=== PATIENT | female | born 1965 | race Caucasian/White ===

== ENCOUNTER → 2016-11-29 | Outpatient (CLI) | payer BC ==
[~2016-11-29] MED LIST: ASPI81TA28 PO; ATOR-24 PO; CLR/5 PO; GLIM4TAB2 PO; LISI1TAB3 PO; PRLSR20 PO; SITA100T3 PO; [UNRECOGNIZED DRUG - OTHER] PO
[2016-11-29 12:45] LABS: HEMATOCRIT 41.3 % (37-47); MEAN CELL VOLUME 86.8 fL (80-100); MEAN CORPUSCULAR HEMOGLOBIN 28.4 pg (25-34); MEAN CORPUSCULAR HGB CONC 32.7 g/dl (32-36); MEAN PLATELET VOLUME 10.9 fL (7.4-10.4); PLATELET COUNT 284 K/uL (130-400); RED BLOOD COUNT 4.76 M/uL (4.2-5.4); WHITE BLOOD COUNT 7.78 K/uL (4.8-10.8)
[2016-11-29 12:59] LABS: ALT/SGPT 21 U/L (12-78); AST/SGOT 13 U/L (15-37); BLOOD UREA NITROGEN 14 mg/dl (7-18); BUN/CREATININE RATIO 19.4 (10-20); CALCIUM 8.6 mg/dl (8.5-10.1); CARBON DIOXIDE 27 mmol/L (21-32); CHLORIDE 105 mmol/L (98-107); CREATININE 0.71 mg/dl (0.60-1.20); GLUCOSE 125 mg/dl (70-99); POTASSIUM 4.2 mmol/L (3.5-5.1); SODIUM 140 mmol/L (136-145)
[2016-11-29 13:10] LABS: ALB/GLOB RATIO 0.9 (0.9-2); ALKALINE PHOSPHATASE 133 U/L (45-117); CHOLESTEROL 134 mg/dl (0-200); CHOLESTEROL/HDL RATIO 2.1; HDL CHOLESTEROL 63 mg/dl; LDL CHOLESTEROL CALCULATED 54 mg/dl; TRIGLYCERIDES 85 mg/dl (0-150); VERY LOW DENSITY LIPOPROT CALC 17 mg/dl
[2016-11-29 13:13] LABS: ESTIMATED AVERAGE GLUCOSE 163 mg/dl; HA1C FLAG Normal (Normal)
== END | disposition home or self-care (01) ==
LOC: C.LABBFT 07:45
PROVIDERS: ATTEND Internal Medicine
DX: E11.29 Type 2 diabetes mellitus with other diabetic kidney complication (principal)

== ENCOUNTER 2016-12-11 05:26 | Day surgery (SDC) | payer BC, OTHER ==
[2016-11-29 10:10] VITALS: BMI 54.0
--- NOTE | 2016-11-29 10:31 | PAT Medication Instructions ---
Service Date Nov 29, 2016. Current Home Medication List Aspirin (Aspirin Ec), 81 MG PO QPM Atorvastatin (Lipitor), 40 MG PO QAM Desloratadine (Clarinex), 5 MG PO QAM Glimepiride (Glimepiride), 1 TAB PO BID Lisinopril (Zestril), 30 MG PO QAM Omeprazole (Prilosec), 20 MG PO QAM Sitagliptin Phosphate (Januvia), 100 MG PO QAM [Headache Med-], 2 TAB PO PRN Medication Instructions For Your Scheduled Surgery - Hold the following medications the morning of surgery: Desloratadine (Clarinex), 5 MG PO QAM Glimepiride (Glimepiride), 1 TAB PO BID Lisinopril (Zestril), 30 MG PO QAM Sitagliptin Phosphate (Januvia), 100 MG PO QAM [Headache Med-], 2 TAB PO PRN - Take the following medications the morning of surgery with a sip of water OTHERWISE NOTHING TO EAT OR DRINK AFTER MIDNIGHT: Omeprazole (Prilosec), 20 MG PO QAM Atorvastatin (Lipitor), 40 MG PO QAM - Take the following medications as scheduled the night before surgery: Glimepiride (Glimepiride), 1 TAB PO BID Aspirin (Aspirin Ec), 81 MG PO QPM [Headache Med-], 2 TAB PO PRN If you have any questions please call us at [phone] or [phone] or [phone]
[~2016-12-11] VITALS: Ht 157.5 cm; Wt 134.5 kg
[2016-12-11 05:58] VITALS: BP 152/74; PULSE 76; TEMP 36.7; O2SAT 94; Ht 157.5 cm; Wt 134.5 kg
[2016-12-11] MEDS ORDERED: LACTATED RINGER'S 1000ML 1,000 ML IV SCH ×2 (06:00→08:17)
[2016-12-11] MEDS ORDERED: MIDAZOLAM HCL 1 MG/ML 2ML VIAL ONE (06:52)
[2016-12-11] MEDS ORDERED: FENTANYL CITRATE INJ 50 MCG/1 ML 2 ML VIAL ONE (06:52)
[2016-12-11] MEDS ORDERED: CITRIC ACID/SODIUM CITRATE 15 ML UDC ONE (07:12)
[2016-12-11] MEDS ORDERED: ONDANSETRON INJ 2 MG/ML 2 ML VIAL IV PRN (07:15)
[2016-12-11] MEDS ORDERED: MEPERIDINE HCL 25 MG/ML CARP IV PRN (07:15)
[2016-12-11] MEDS ORDERED: FENTANYL CITRATE INJ 50 MCG/1 ML 2 ML VIAL IV PRN (07:15)
[2016-12-11] MEDS ORDERED: ALBUTEROL 0.083% NEBU SOLN 3 ML VIAL INH PRN (07:15)
[2016-12-11] MEDS ORDERED: EpHEDrine SULFATE INJ 50 MG/ML AMP IV PRN (07:15)
[2016-12-11] MEDS ORDERED: MoRPHine SULFATE 10 MG/ML CARP/VIAL IV PRN (07:15)
[2016-12-11] MEDS ORDERED: ATROPINE SULFATE 0.1 MG/ML 5ML SYR IV PRN (07:15)
--- NOTE | 2016-12-11 07:22 | History and Physical ---
History & Physical Date Dec 11, 2016. Chief Complaint endometrial mass History of Present Illness The patient is a 51 year old female, PM who presented for her annual exam without complaints. Shortly thereafter had several days of light brown [id number]. Had endo b iopsy that showed proliferative endometrium. Was advised to take provera 10 mg x 10 days per month. Had ultrasound which showed a thickeened endometrium with concern for polyp. Additional History Hepatic Disease: Yes Endocrine Disorder: Yes Kidney Disease: No Hypertension: No Heart Disease: No Bleeding Tendencies: No Infectious Diseases: No LMP: PM Other: Patietn has hx of fatty liver, DM, GERD, hypercholesterolemia, obesity. PSx hx- -carpal tunnel repair, oral surgery, BTL. Family hx of breast cancer, DM, hyyperlipidemia, [place], hypertension, Allergies Coded Allergies: No Known Allergies (Verified , 12/11/16) Home Medications Scheduled Aspirin (Aspirin Ec), 81 MG PO QPM Atorvastatin (Lipitor), 40 MG PO QAM Desloratadine (Clarinex), 5 MG PO QAM Glimepiride (Glimepiride), 1 TAB PO BID Lisinopril (Zestril), 30 MG PO QAM Omeprazole (Prilosec), 20 MG PO QAM Sitagliptin Phosphate (Januvia), 100 MG PO QAM [Headache Med-], 2 TAB PO PRN Physical Examination Skin: warm/dry Neck: supple, no adenopathy Respiratory/Chest: lungs clear, normal breath sounds Cardiovascular: regular rate, rhythm Abdomen / GI: non tender (nd, soft) Genitourinary - Female: external genitalia normal, normal pelvic exam Plan of Treatment Plan D&C/HSC and removal of mass. The r/b/se of this was discussed with the patient including bleeding, transfusion, infection, damage to surrounding structures, need for further surgery, 1% chance of uterine rupture, also discussed heart attack, blood clot, stroke and . Consent reviewed and signed.
[2016-12-11] MEDS ORDERED: DEXAMETHASONE SOD INJ 4 MG/ML VIAL ONE (07:54)
[2016-12-11] MEDS ORDERED: SUCCINYLCHOLINE CHLORIDE 20 MG/ML 10 ML VIAL IV ONE (07:54)
[2016-12-11] MEDS ORDERED: ONDANSETRON INJ 2 MG/ML 2 ML VIAL ONE (07:54)
[2016-12-11] MEDS ORDERED: KETOROLAC TROMETHAMINE 30 MG/ML VIAL ONE (07:54)
[2016-12-11] MEDS ORDERED: LIDOCAINE HCL 2% 2 ML VIAL (20MG/ML) ONE (07:54)
[2016-12-11] MEDS ORDERED: METOCLOPRAMIDE HCL INJ 5 MG/ML 2 ML VIAL ONE (07:54)
[2016-12-11] MEDS ORDERED: PROPOFOL IV EMULSION 10 MG/ML 20 ML VIAL IV ONE (07:54)
--- NOTE | 2016-12-11 08:20 | Discharge Instructions ---
Discharge Instructions Date of Service Dec 11, 2016. Visit Reason for Visit: Post Menopausal Bleeding; Endometrial Mass Discharge Discharge Diagnosis / Problem: s/p D&C with removal of polyp Discharge Goals Goal(s): Specific goals Activity Recommendations Activity Limitations: per Instructions/Follow-up section Anesthesia . Post Anesthesia Instructions: If you have had General Anesthesia or IV Sedation: * Do not drive today. * Resume driving when surgeon permits. * Do not make important decisions or sign legal documents today. * Call surgeon for: 1. Temperature elevations greater than 101 degrees F. 2. Uncontrollable pain. 3. Excessive bleeding. 4. Persistent nausea and vomiting. 5. Medication intolerance (nausea, vomiting or rash). * For nausea and vomiting use only clear liquids such as: tea, soda, bouillon until nausea subsides, then gradually increase diet as tolerated. * If you have any concerns or questions, call your surgeon's office. If physician is unavailable and it is an emergency, call 911 or go to the nearest emergency room. . Instructions / Follow-Up Instructions / Follow-Up ACTIVITY RECOMMENDATIONS: * Avoid tampons, douching, hot tubs, pools, and intercourse until bleeding has stopped. * May shower as usual. * No strenuous activity for 24-48 hours. After 24-48 hours, you may do anything you feel like doing (driving and sports are okay). SPECIAL CARE INSTRUCTIONS: Special Diet: * Mild nausea may occur in the immediate post-operative period. * Take clear liquids such as tea, cola or bouillon until all nausea has subsided; you may then resume your normal diet. Special Care: * Light bleeding and vaginal spotting can last from a few days to 3-4 weeks. Call your doctor if bleeding becomes heavier than the heaviest part of your period. * Check your temperature twice a day for one week. If it goes above 100.4 degrees Fahrenheit (38.0 Celsius), notify your doctor. * Call your doctor's office for an appointment for 2 weeks after your surgery. FOLLOW-UP VISIT: Call your doctor's office for an appointment for 2 weeks after your surgery. Diet Recommendations Recommended Home Diet: no limitations Procedures Procedures Performed: Hysteroscopy, dilitation and currettage. Pending Studies Studies pending at discharge: no Medical Emergencies . Who to Call and When: Medical Emergencies: If at any time you feel your situation is an emergency, please call 911 immediately. . Non-Emergent Contact Non-Emergency issues call your: Income Tax Expert . . "Provider Documentation" section prepared by Netta Figueroa.
--- NOTE | 2016-12-11 08:20 | [facility] Post Operative Brief Note ---
Immediate Operative Summary Operative Date Dec 11, 2016. Pre-Operative Diagnosis Post menopausal bleeding, endometrial mass. Post-Operative Diagnosis Same as preop. Procedure(s) Performed Hysteroscopy, dilitation and currettage. Surgeon Dr. Figueroa Computer Technical Support Specialist Surgeon(s) None Estimated Blood Loss 5 ml Findings small polyp noted in the fundus of the uterus, atrophic appearing endometrium Specimens A: Endometrial polyp B: Endometrial currettings. Drains none Anesthesia gett Complication(s) None Disposition Recovery Room / PACU
[2016-12-11] MEDS ORDERED: MoRPHine SULFATE 4 MG/ML 1 ML CARP\\VIAL IV PRN (08:30)
[2016-12-11] MEDS ORDERED: OXYCODONE/ACETAMINOPHEN 5-325 TAB PO PRN ×2 (08:30)
[2016-12-11] MEDS ORDERED: ACETAMINOPHEN 325 MG TAB PO PRN (08:30)
[2016-12-11] MEDS ORDERED: ACETAMINOPHEN 650 MG SUPP PR PRN (08:30)
[2016-12-11] MEDS ORDERED: IBUPROFEN 200 MG TAB PO PRN (08:30)
[2016-12-11] MEDS ORDERED: MoRPHine SULFATE 2 MG/ML CARP IV PRN ×2 (08:30)
--- NOTE | 2016-12-11 08:50 | Anesthesiology Progress Note ---
Anesthesia Post Op Note Date & Time Dec 11, 2016 at 08:50 Vital Signs Pain Intensity: 2 Vital Signs Past 12 Hours Date Time Temp Pulse Resp B/P Pulse Ox O2 Delivery O2 Flow Rate FiO2 12/11/16 08:40 79 20 141/77 98 Room Air 12/11/16 08:30 85 20 138/73 98 Room Air 12/11/16 08:20 36.6 86 20 134/72 98 Mask 10 12/11/16 08:12 36.6 94 20 160/82 97 Mask 10 12/11/16 05:58 36.7 76 18 152/74 94 Room Air Notes Mental Status: alert / awake / arousable, participated in evaluation Pt Amnestic to Procedure: Yes Nausea / Vomiting: adequately controlled Pain: adequately controlled Airway Patency, RR, SpO2: stable & adequate BP & HR: stable & adequate Hydration State: stable & adequate Anesthetic Complications: no major complications apparent
[2016-12-11 09:25] VITALS: BP 150/73; PULSE 76; TEMP 36.6; O2SAT 93
[2016-12-11 09:55] VITALS: BP 135/80; PULSE 74; O2SAT 95
[2016-12-11 10:25] VITALS: PULSE 75; O2SAT 95
--- NOTE | 2016-12-11 14:00 | OPERATIVE REPORT ---
DATE OF OPERATION: 12/11/2016 PREOPERATIVE DIAGNOSES: 1. Postmenopausal bleeding. 2. Endometrial mass. POSTOPERATIVE DIAGNOSES: Same. PROCEDURE: D\T\C, hysteroscopy with MyoSure removal of the polyp. SURGEON: Netta Figueroa MD ANESTHESIA: General per endotracheal tube. ESTIMATED BLOOD LOSS: 5 mL. INTRAVENOUS FLUIDS: 600 mL. HYSTEROSCOPIC DEFICIT: Zero. INDICATIONS FOR PROCEDURE: Milena is a 51-year-old postmenopausal morbidly obese female who was found to have an episode of postmenopausal bleeding. She had an endometrial biopsy in the office showing proliferative endometrium and had been on monthly MPA. On SI assay, an endometrial mass was noted. FINDINGS: Uterus sounded to a 7 cm. The endometrium appeared thin, but there was an endometrial polyp noted at its fundus. Both tubal ostia were visualized. COMPLICATIONS: None. DRAINS: None. DISPOSITION: To recovery room in stable condition. DESCRIPTION OF PROCEDURE: The patient was taken the operating room where she was identified verbally and by bracelet. She was placed in dorsal supine position where general anesthesia was induced without difficulty. She was then placed in the dorsal lithotomy position in [facility] stirrups and prepped and draped in normal sterile fashion. Time-out was held identifying correct patient, procedure and positioning. The bladder was drained of urine and exam under anesthesia was performed revealing a mobile uterus, but exam was limited by body habitus. A Lockhart retractor was placed in the posterior vagina. The anterior lip of the cervix was grasped with single tooth tenaculum. The uterus was sounded to 7 cm, dilated to a #25 Hegar dilator. The MyoSure hysteroscope was introduced with the above noted findings. The MyoSure Lite was placed through the MyoSure scope and the endometrial polyp was removed. Then the hysteroscope was removed, the curettage was performed and the procedure was thus terminated. All sponge, lap and needle counts were correct x2. The patient tolerated the procedure well, was taken to the recovery room in stable condition. I attest to the content of the Intraoperative Record and any orders documented therein. Any exceptio ns are noted below.
== END 2016-12-11 10:37 | disposition home or self-care (01) ==
LOC: C.ACU 05:26
PROVIDERS: ATTEND Obstetrics & Gynecology
DX: N95.0 Postmenopausal bleeding (principal); N84.0 Polyp of corpus uteri; E11.9 Type 2 diabetes mellitus without complications; K21.9 Gastro-esophageal reflux disease without esophagitis; E78.00 Pure hypercholesterolemia, unspecified; E66.01 Morbid (severe) obesity due to excess calories; Z80.3 Family history of malignant neoplasm of breast; Z83.3 Family history of diabetes mellitus; Z80.49 Family history of malignant neoplasm of other genital organs; Z79.82 Long term (current) use of aspirin; Z79.899 Other long term (current) drug therapy

== ENCOUNTER → 2017-01-16 | Outpatient (CLI) | payer BC ==
--- NOTE | 2017-01-16 16:04 | MAMMOGRAPHY REPORT ---
BILATERAL DIGITAL SCREENING MAMMOGRAM TOMOSYNTHESIS WITH CAD: 01/16/2017 CLINICAL HISTORY: Routine screening. Patient has no complaints. TECHNIQUE: Breast tomosynthesis in addition to standard 2D mammography was performed. Current study was also evaluated with a Computer Aided Detection (CAD) system. COMPARISON: Comparison is made to exams dated: 01/10/2016 mammogram, 01/07/2015 mammogram, 01/06/2014 m ammogram, 01/01/2013 mammogram, 01/01/2012 mammogram, and 12/28/2010 mammogram - [facility]. BREAST COMPOSITION: The tissue of both breasts is almost entirely fatty. FINDINGS: No suspicious mass, architectural distortion or cluster of microcalcifications is seen. IMPRESSION: ACR BI-RADS CATEGORY 1: NEGATIVE There is no mammographic evidence of malignancy. A 1 year screening mammogram is recommended. The p atient will receive written notification of the results. Approximately 10% of breast cancers are not detected with mammography. A negative mammographic repor t should not delay biopsy if a clinically suggestive mass is present. Kimberly cates/aditi:01/16/2017 14:30:01 Consulting Systems Engineer: Jayne Castrejon RT(R)(M), [facility] letter sent: Normal 1/2 BI-RADS Code: ACR BI-RADS Category 1: Negative
== END | disposition home or self-care (01) ==
LOC: C.MAMM 13:19
PROVIDERS: ATTEND Internal Medicine
DX: Z12.31 Encounter for screening mammogram for malignant neoplasm of breast (principal)

== ENCOUNTER → 2017-06-15 | Outpatient (CLI) | payer BC ==
[2017-06-15 13:22] LABS: ALT/SGPT 25 U/L (12-78); AST/SGOT 15 U/L (15-37); BLOOD UREA NITROGEN 15 mg/dl (7-18); BUN/CREATININE RATIO 19.5 (10-20); CALCIUM 8.9 mg/dl (8.5-10.1); CARBON DIOXIDE 27 mmol/L (21-32); CHLORIDE 104 mmol/L (98-107); CREATININE 0.76 mg/dl (0.60-1.20); GLUCOSE 137 mg/dl (70-99); POTASSIUM 4.5 mmol/L (3.5-5.1); SODIUM 138 mmol/L (136-145)
[2017-06-15 13:25] LABS: ALB/GLOB RATIO 0.9 (0.9-2); ALKALINE PHOSPHATASE 144 U/L (45-117); CHOLESTEROL 132 mg/dl (0-200); CHOLESTEROL/HDL RATIO 2.1; HDL CHOLESTEROL 62 mg/dl; LDL CHOLESTEROL CALCULATED 57 mg/dl; TRIGLYCERIDES 65 mg/dl (0-150); VERY LOW DENSITY LIPOPROT CALC 13 mg/dl
== END | disposition home or self-care (01) ==
LOC: C.LABBFT 08:46
PROVIDERS: ATTEND Internal Medicine
DX: E11.29 Type 2 diabetes mellitus with other diabetic kidney complication (principal)

== ENCOUNTER → 2017-06-20 | Outpatient (CLI) | payer BC ==
[2017-06-20 13:24] LABS: RATIO 22.2 mcg/mg (0-30.0)
== END | disposition home or self-care (01) ==
LOC: C.LABBFT 08:28
PROVIDERS: ATTEND Internal Medicine
DX: E11.29 Type 2 diabetes mellitus with other diabetic kidney complication (principal)

== ENCOUNTER → 2017-12-20 | Outpatient (CLI) | payer BC | END | disposition home or self-care (01) | LOC: C.PAPS 07:58 | PROVIDERS: ATTEND Obstetrics & Gynecology | DX: Z01.419 Encounter for gynecological examination (general) (routine) without abnormal findings (principal) ==

== ENCOUNTER → 2018-01-18 | Outpatient (CLI) | payer BC ==
--- NOTE | 2018-01-21 07:43 | MAMMOGRAPHY REPORT ---
BILATERAL DIGITAL SCREENING MAMMOGRAM TOMOSYNTHESIS WITH CAD: 01/18/2018 CLINICAL HISTORY: Routine screening. TECHNIQUE: Breast tomosynthesis in addition to standard 2D mammography was performed. Current study was also evaluated with a Computer Aided Detection (CAD) system. COMPARISON: Comparison is made to exams dated: 01/16/2017 mammogram, 01/10/2016 mammogram, 01/07/2015 cristopher mogram, 01/06/2014 mammogram, 01/01/2013 mammogram, and 01/01/2012 mammogram - [facility]. BREAST COMPOSITION: The tissue of both breasts is almost entirely fatty. FINDINGS: No suspicious masses, calcifications, or areas of architectural distortion are noted in ei ther breast. There has been no significant interval change compared to prior exams. IMPRESSION: ACR BI-RADS CATEGORY 1: NEGATIVE There is no mammographic evidence of malignancy. A 1 year screening mammogram is recommended. The pa tient will receive written notification of the results. Approximately 10% of breast cancers are not detected with mammography. A negative mammographic report should not delay biopsy if a clinically suggestive mass is present. Kayy Mariee M.D. /:01/18/2018 11:22:33 Correctional Counselor/Case Manager: Reinier GREEN(Gina)(Daren), [facility] letter sent: Normal 1/2 BI-RADS Code: ACR BI-RADS Category 1: Negative
== END | disposition home or self-care (01) ==
LOC: C.MAMM 09:12
PROVIDERS: ATTEND Internal Medicine
DX: Z12.31 Encounter for screening mammogram for malignant neoplasm of breast (principal)

== ENCOUNTER → 2018-01-18 | Outpatient (CLI) | payer BC ==
[2018-01-18 12:13] LABS: BASO % 0.3 %; BASO ABS # 0.02 K/uL (0-0.2); EOS % 4.6 %; EOS ABS # 0.31 K/uL (0-0.5); HEMATOCRIT 42.1 % (37-47); HEMOGLOBIN 13.5 g/dL (12.0-16.0); IG# 0.01 K/uL (0.00-0.02); LYMPH % 34.4 %; LYMPH ABS # 2.31 K/uL (1.2-3.4); MEAN CELL VOLUME 84.5 fL (80-100); MEAN CORPUSCULAR HEMOGLOBIN 27.1 pg (25-34); MEAN CORPUSCULAR HGB CONC 32.1 g/dl (32-36); MEAN PLATELET VOLUME 10.2 fL (7.4-10.4); MONO % 8.3 %; MONO ABS # 0.56 K/uL (0.11-0.59); NEUT % 52.3 %; NEUT ABS # 3.51 K/uL (1.4-6.5); PLATELET COUNT 276 K/uL (130-400); RED CELL DISTRIBUTION WIDTH CV 14.5 % (11.5-14.5); RED CELL DISTRIBUTION WIDTH SD 44.9 fL (36.4-46.3); WHITE BLOOD COUNT 6.72 K/uL (4.8-10.8)
[2018-01-18 12:34] LABS: HEMOGLOBIN A1C 6.9 % (4.5-5.6)
[2018-01-18 12:39] LABS: ALBUMIN 3.4 gm/dl (3.4-5.0); ALT/SGPT 22 U/L (12-78); AST/SGOT 17 U/L (15-37); BLOOD UREA NITROGEN 14 mg/dl (7-18); CALCIUM 8.1 mg/dl (8.5-10.1); CARBON DIOXIDE 27 mmol/L (21-32); GLUCOSE 100 mg/dl (70-99); POTASSIUM 4.5 mmol/L (3.5-5.1); SODIUM 136 mmol/L (136-145)
[2018-01-18 12:52] LABS: ALKALINE PHOSPHATASE 145 U/L (45-117); CHOLESTEROL 129 mg/dl (0-200); LDL CHOLESTEROL CALCULATED 58 mg/dl; TOTAL PROTEIN 7.4 gm/dl (6.4-8.2)
== END | disposition home or self-care (01) ==
LOC: C.LABBFT 08:13
PROVIDERS: ATTEND Internal Medicine
DX: E11.29 Type 2 diabetes mellitus with other diabetic kidney complication (principal)